=== PATIENT | male | born 1995 | race Caucasian/White ===

== ENCOUNTER 2020-10-09 19:55 | Emergency (ER) | payer OTHER ==
[2020-10-09 20:01] VITALS: BP 118/76; PULSE 94; RESP 18; TEMP 98.3
--- NOTE | 2020-10-09 20:04 | ED ---
Upper Extremity HPI - General Source: patient Mode of arrival: ambulatory Limitations: no limitations <Leslie Murphy - Last Filed: 10/09/20 20:04> <Ramesh Tsai - Last Filed: 10/09/20 21:12> - General Chief Complaint: Extremity Injury, Upper Stated Complaint: finger injury, [facility] Time Seen by Provider: 10/09/20 20:03 - History of Present Illness Initial Comments: Patient is 25-year-old male present emergency department complaining of left index finger pain. He noted he smashed it between a steel beam floor. He noted at the initial injury pain was 10 out of 10 but is currently tolerable. He declined any need for pain medication. He did note that his fingernail had blood under it was tender. He noted the only time his finger hurt was when he bumped it or hit anything. Patient denied any loss of consciousness decreased sensation weakness numbness tingling chest pain first breath headache nausea vomiting diarrhea constipation fever fatigue chills (Ramesh Tsai) - Related Data Allergies Allergy/AdvReac Type Severity Reaction Status Date / Time No Known Allergies Allergy Verified 10/09/20 20:01 Review of Systems ROS Other: All systems not noted in ROS Statement are negative. <Leslie Murphy - Last Filed: 10/09/20 20:04> ROS Other: All systems not noted in ROS Statement are negative. <Ramesh Tsai - Last Filed: 10/09/20 21:12> ROS Statement: Those systems with pertinent positive or pertinent negative responses have been documented in the HPI. Past Medical History History of Any Multi-Drug Resistant Organisms: None Reported Past Surgical History: No Surgical Hx Reported Past Psychological History: No Psychological Hx Reported Smoking Status: Never smoker Past Alcohol Use History: None Reported Past Drug Use History: None Reported <Leslie Murphy - Last Filed: 10/09/20 20:04> General Exam Limitations: no limitations <Leslie Murphy P - Last Filed: 10/09/20 20:04> Limitations: no limitations General appearance: alert, in no apparent distress Head exam: Present: atraumatic, normocephalic, normal inspection Eye exam: Present: normal appearance, PERRL, EOMI. Absent: scleral icterus, conjunctival injection, periorbital swelling ENT exam: Present: normal exam, mucous membranes moist Neck exam: Present: normal inspection. Absent: tenderness, meningismus, lymphadenopathy Respiratory exam: Present: normal lung sounds bilaterally. Absent: respiratory distress, wheezes, rales, rhonchi, stridor Cardiovascular Exam: Present: regular rate, normal rhythm, normal heart sounds. Absent: systolic murmur, diastolic murmur, rubs, gallop, clicks GI/Abdominal exam: Present: soft, normal bowel sounds. Absent: distended, tenderness, guarding, rebound, rigid Extremities exam: Present: normal inspection, normal capillary refill, other (Left index finger subungual hematoma). Absent: full ROM (Decreased range of motion of left index finger due to pain.), tenderness, pedal edema, joint swelling, calf tenderness Neurological exam: Present: alert, oriented X3, CN II-XII intact Psychiatric exam: Present: normal affect, normal mood Skin exam: Present: warm, dry, intact, normal color. Absent: rash <Ramesh Tsai - Last Filed: 10/09/20 21:12> Course Vital Signs 10/09/20 19:56 Temperature 98.3 F Pulse Rate 94 Respiratory 18 Rate Blood Pressure 118/76 O2 Sat by Pulse 98 Oximetry Medical Decision Making - Radiology Data Radiology results: report reviewed, image reviewed <Ramesh Tsai - Last Filed: 10/09/20 21:12> - Medical Decision Making 25-year-old male with left index finger injury and subungual hematoma. Left hand x-ray with focus on left index finger ordered, will trephinate the nail if needed. X-ray negative for any fracture. Left index finger nail was trephinated to relieve pressure. Patient tolerated procedure well. 15 mg of Toradol ordered. On case discussed with Dr. Murphy, decided the patient to discharge home with conservative management. (Ramesh Tsai) - Radiology Data Left hand x-ray no significant abnormality seen. (Ramehs Tsai) Disposition <Leslie Murphy - Last Filed: 10/09/20 20:04> Is patient prescribed a controlled substance at d/c from ED?: No Time of Disposition: 21:12 <Ramesh Tsai - Last Filed: 10/09/20 21:12> Clinical Impression: Subungual hematoma of left index finger Disposition: HOME SELF-CARE Condition: Stable Instructions (If sedation given, give patient instructions): Subungual Hematoma (ED) Additional Instructions: Please return to the Emergency Department if symptoms worsen or any other concerns. Can continue to express blood if pressure is still there. Follow-up primary care in 2-4 days. Nail will eventually brought a needle hole will disappear. Take [id number] pain medication as needed for management. Referrals: None,Stated [Primary Care Provider] - 1-2 days
--- NOTE | 2020-10-09 20:36 | XR ---
Left hand. HISTORY: Trauma index finger. COMPARISON: None. TECHNIQUE: 3 views left hand were obtained. FINDINGS: There is no fracture, dislocation, intraosseous or intra-articular abnormality. There is no radiopaqu e foreign body or abnormal soft tissue gas or calcification. IMPRESSION: No significant abnormality seen.
[2020-10-09] MEDS ORDERED: KETOROLAC 15 MG/ML 1 ML VIAL IM STA (21:08)
== END 2020-10-09 21:15 | disposition home or self-care (01) ==
LOC: EC 19:55
DX: S60.122A Contusion of left index finger with damage to nail, initial encounter (principal); W23.0XXA Caught, crushed, jammed, or pinched between moving objects, initial encounter
CPT/HCPCS: 73130; 99283; 96372; J1885

== ENCOUNTER → 2023-07-10 | Outpatient (CLI) | payer BC ==
--- NOTE | 2023-07-10 10:36 | CT ---
EXAMINATION TYPE: CT brain wo con DATE OF EXAM: 07/10/2023 COMPARISON: Prior CT brain April 23, 2013 HISTORY: nausea, vomiting, headaches x5 days, no head injury CT DLP: 1186 mGycm. Automated Exposure Control for Dose Reduction was Utilized. TECHNIQUE: CT scan of the head is performed without contrast. FINDINGS: There is no acute intracranial hemorrhage, mass effect, or midline shift identified. The ventricles and sulci are within normal limits in size. Araya-white matter differentiation is preserv ed. The globes are intact and the visualized sinuses are clear. IMPRESSION: Unremarkable study. No significant change from prior.
== END | disposition home or self-care (01) ==
LOC: RADCTMAIN 09:49
PROVIDERS: ATTEND Family Medicine
DX: R51.9 Headache, unspecified (principal); R11.2 Nausea with vomiting, unspecified
CPT/HCPCS: 70450